=== PATIENT | female | born 1985 | race Caucasian/White ===

== ENCOUNTER 2016-11-13 11:33 | Emergency (ER) | payer MEDICAID ==
[2016-11-13 13:55] VITALS: BP 110/69
== END 2016-11-13 14:00 | disposition home or self-care (01) ==
LOC: ED 11:33
DX: S70.361A Insect bite (nonvenomous), right thigh, initial encounter (principal); S80.261A Insect bite (nonvenomous), right knee, initial encounter; S80.862A Insect bite (nonvenomous), left lower leg, initial encounter; L08.9 Local infection of the skin and subcutaneous tissue, unspecified; W57.XXXA Bitten or stung by nonvenomous insect and other nonvenomous arthropods, initial encounter; Y93.89 Activity, other specified; Y99.8 Other external cause status; Y92.89 Other specified places as the place of occurrence of the external cause
CPT/HCPCS: J7512

== ENCOUNTER 2018-03-14 10:44 | Emergency (ER) | payer SELFPAY ==
[~2018-03-14] VITALS: Ht 157.5 cm; Wt 72.1 kg
[2018-03-14 10:58] VITALS: Ht 157.5 cm; Wt 72.1 kg
[2018-03-14 11:31] VITALS: BP 148/103
== END 2018-03-14 11:31 | disposition home or self-care (01) ==
LOC: ED 10:44
DX: L03.114 Cellulitis of left upper limb (principal); E78.00 Pure hypercholesterolemia, unspecified; I10 Essential (primary) hypertension; E11.9 Type 2 diabetes mellitus without complications
CPT/HCPCS: 82962

== ENCOUNTER 2018-06-22 18:45 | Emergency (ER) | payer MEDICAID ==
[~2018-06-22] VITALS: Ht 154.9 cm; Wt 73.0 kg
[2018-06-22 19:02] VITALS: BP 146/96; Ht 154.9 cm; Wt 73.0 kg
== END 2018-06-22 20:27 | disposition home or self-care (01) ==
LOC: ED 18:45
DX: S60.221A Contusion of right hand, initial encounter (principal); I10 Essential (primary) hypertension; E11.9 Type 2 diabetes mellitus without complications; E78.00 Pure hypercholesterolemia, unspecified; F32.9 Major depressive disorder, single episode, unspecified; W51.XXXA Accidental striking against or bumped into by another person, initial encounter; Y93.89 Activity, other specified; Y92.89 Other specified places as the place of occurrence of the external cause; Y99.8 Other external cause status

== ENCOUNTER 2018-08-26 09:15 | Inpatient (IN) | payer MEDICAID ==
[~2018-08-26] VITALS: Ht 157.5 cm; Wt 72.6 kg
[2018-08-26 09:22] VITALS: Ht 157.5 cm; Wt 72.6 kg
--- NOTE | 2018-08-26 09:37 | NUR ---
PATIENT CAME TO ED CO HEMATEESIS THAT STARTED 2 DAYS AGO. PATIENT DESCRIBED THE VOMIT YELLOW WITH CHUNKS. VOMITING IS ACCOMPANIED BY NAUSEA AND DAIRRHEA. PATIENT STATES SHE DOES NOT HAVE AN APPETITE BUT FORCES HERSELF TO EAT. PATIENT STATES SHARP PAIN IN THE EPIGASTRIC AREA THAT RADIATES TO ALL 4 QUADRANTS OF ABDOMEN. PATIENT STATES SHE FEELS PAIN WHEN SHE TRIES TO EAT. BOWEL SOUNDS HYPOACTIVE ON AUSCULTATION THROUGHOUT ABDOMEN. BREATHING EVEN AND UNLABORED WITH NAD. PATIENT RECLINED ON GURNEY. WILL CONTINUE TO MONITOR.
[2018-08-26 10:29] LABS: CALCIUM 8.6 mg/dL (8.5-10.1); CARBON DIOXIDE 19.2 mmol/L (21-32); CHLORIDE SERUM 104 mmol/L (98-107); CREATININE SERUM 0.7 mg/dL (0.6-1.0); GFR1 > 60 mL/min; GLUCOSE SERUM 93 mg/dL (74-106); POTASSIUM SERUM 3.3 mmol/L (3.5-5.1); SODIUM SERUM 141 mmol/L (136-145)
[2018-08-26 10:33] LABS: BASOPHIL % 1.2 % (0-2); PLATELET COUNT 197 x10^3mcL (130-400); RED CELL DISTRIBUTION WIDTH 12.5 % (11.5-14.5)
[2018-08-26 10:34] LABS: ALBUMIN 4.1 g/dL (3.4-5.0); ALKALINE PHOSPHATASE 79 U/L (46-116); ALT/SGPT 187 U/L (14-59); AST/SGOT 126 U/L (15-37); BILIRUBIN TOTAL 0.5 mg/dL (0.20-1.00); LIPASE 159 IU/L (73-393); TOTAL PROTEIN, SERUM 7.4 g/dL (6.4-8.2)
[2018-08-26 10:36] LABS: microscopic required? NO
--- NOTE | 2018-08-26 11:05 | NUR ---
PATIENT RESTING AT BEDSIDE IN NAD
[2018-08-26 11:08] LABS: AMPHETAMINE QUAL UR NONE DETECTED (See below)
[2018-08-26 11:40] LABS: urine erythrocyte NEGATIVE (NEGATIVE)
--- NOTE | 2018-08-26 11:40 | NUR ---
PT RESTING AT BEDSIDE IN NAD. LIGHTS DIMMED TO PROMOTE PATIENT COMFORT. BREATHING E/U BILATERAL CHEST RISE. PATIENT STS PAIN IS TOLERABLE AND STS SATISFACTION
--- NOTE | 2018-08-26 14:43 | NUR ---
ASSUMED CARE OF PATIENT. FIANCE AT BEDSIDE. NO APPARENT S/SX OF DISTRES OR DISCOMFORT. WILL CONTINUE TO MONITOR.
[2018-08-26 14:47] VITALS: BP 139/95
[2018-08-26 14:57] LABS: CHOLESTEROL/HDL RATIO 4.5; PHOSPHOROUS 3.5 mg/dL (2.5-4.9)
--- NOTE | 2018-08-26 15:04 | NUR ---
COMPLAINING OF 7/10 ABDOMINAL PAIN. PRN NORCO PROVIDED.
--- NOTE | 2018-08-26 15:17 | NUR ---
RECEIVED PT FROM ER. PT ADMIT FOR CHOLECYSTITIS, PT IS A/O X4, VERBAL RESPONSIVE, ABLE TO TELL WHAT SHE NEEDS. LUNG SOUND CLEAR BIALTERAL, NO COUGH, NO SOB, PT IS ON TELE 31, NSR, DENY ANY CHEST PAIN OR DISCOMFORT, BOWEL SOUND PRESENT ALL 4 QUADRANTS, NO DISTENTION, NO TENDER. PT C/O ABD PAIN UPPER QUADRANTS 8/10, NAUSEA AT THIS TIME, PEDAL PULSE PRESENT BOTH FEET, NO EDEMA, IV AT RIGHT AC, NO LEAKING, NO INFITLRAITNO. ALL ADLS ASSIST, ALL NEED MET, CALL LIGHT IN REACH, WILL CONTINUE TO MONITOR.
--- NOTE | 2018-08-26 15:37 | NUR ---
PATIENT REPORTING DRINKING 6-10 BEERS A DAY. ATTEMPTING TO CONTACT .
--- NOTE | 2018-08-26 15:57 | NUR ---
PNEUMOVAX ADMINISTERED. EDUCATED ON VACCINE SIDE EFFECTS.
--- NOTE | 2018-08-26 16:19 | NUR ---
PATIENT NOTIFIED OF NEED FOR STOOL SAMPLE FOR OCCULT BLOOD.
[2018-08-26 16:49] VITALS: BP 139/95
[2018-08-26 16:56] VITALS: BP 102/49
--- NOTE | 2018-08-26 18:41 | NUR ---
PATIENT SEEN RESTING IN BED WITH EQUAL AND UNLABORED RESPIRATIONS. NO APPARENT S/SX OF DISTRESS OR DISCOMFORT NOTED. IV ON RAC PATENT AND INFUSING 100 ML/HR NS. WILL ENDORSE CARE TO ONCOMING RN.
--- NOTE | 2018-08-26 19:30 | NUR ---
PT IS A/O x4. ON TELE #31, NSR. DENIES ANY CHEST PAIN OR PRESSURE. PULSES ARE PRESENT. NO EDEMA NOTED. LUNGS CLEAR IN ALL FEILDS. ON RA, DENIES ANY SOB. EQAUL CHEST RISE AND FALL. BOWEL SOUNDS PRESENT X4, DENIES ANY ABD PAIN. PT C/O NAUSEA. WILL GIVE PRN MEDICATION PER EMAR. VOIDS FREELY. SKIN WARM AND INTACT. DENIES ANY PAIN AT THIS TIME. FAMILY AT BEDSIDE. BED IS AT LOWEST SETTING. CALL LIGHT WITHIN REACH. WILL CONTINUE TO MONITOR.
[2018-08-26 21:01] VITALS: BP 132/87
--- NOTE | 2018-08-27 01:30 | NUR ---
PT RESTING IN BED WITH BOTH EYES CLOSED. BREATHING EVEN AND UNLABORED. NO SIGN OF DISTRESS NOTED. BED IS AT LOWEST SETTING. CALL LIGHT WITHIN REACH. WILL CONTINUE TO MONITOR.
[2018-08-27 05:29] VITALS: BP 129/86
[2018-08-27 06:21] LABS: BASOPHIL % 1.2 % (0-2); PLATELET COUNT 164 x10^3mcL (130-400); RED CELL DISTRIBUTION WIDTH 12.6 % (11.5-14.5)
[2018-08-27 06:40] LABS: CALCIUM 8.2 mg/dL (8.5-10.1); CARBON DIOXIDE 19.2 mmol/L (21-32); CHLORIDE SERUM 110 mmol/L (98-107); CREATININE SERUM 0.6 mg/dL (0.6-1.0); GFR1 > 60 mL/min; GLUCOSE SERUM 80 mg/dL (74-106); POTASSIUM SERUM 3.6 mmol/L (3.5-5.1); SODIUM SERUM 144 mmol/L (136-145)
--- NOTE | 2018-08-27 06:40 | NUR ---
PT RESTING IN BED WITH BOTH EYES CLOSED. BREATHING EVEN AND UNLABORED. NO SIGN OF DISTRESS NOTED. IV INACT AND PATENT. NO ACUTE EVENT OCCURED AT NIGHT. BED IS AT LOWEST SETTING. CALL LIGHT WITHIN REACH. WILL ENDORSE TO AM NURSE.
--- NOTE | 2018-08-27 07:30 | NUR ---
RECEIVED PATIENT IN BED, AWAKE AND ALERT. PER PATIENT SHE DOES NOT HAVE ANY APPETITE, AND THAT WHEN SHE DOES EAT ANYTHING SHE HAS DIARRHEA. DENIES ANY N/V AT THIS TIME. TELE 31 NSR. IVF INFUSING WELL TO RT A/C. SITE PATENT. NO ACUTE DISTERSS NOTED. WILL CONTINUE TO MONITOR.
[2018-08-27 08:20] VITALS: BP 126/92
--- NOTE | 2018-08-27 10:15 | NUR ---
DR CR INTO SEE PATIENT. NEW ORDER RECEIVED TO CONSENT PATIENT FOR EGD. PATIENT SIGNED CONSENT, AND IS NPO ORDERED. WILL CONTINUE TO MONITOR.
--- NOTE | 2018-08-27 10:16 | NUR ---
Discount pharmacy card and list to low cost medical clinics given to patient by Lane.
[2018-08-27 12:01] VITALS: BP 133/88
--- NOTE | 2018-08-27 12:20 | NUR ---
PATIENT WENT DOWN TO GI LAB FOR EGD VIA [facility] AT THIS TIME.
--- NOTE | 2018-08-27 13:40 | NUR ---
PATIENT RETURNED FROM GI LAB. AWAKE ALERT AND ORIENTED. DENIES ANY PAIN OR DISCOMFORT. REMAINS NPO PER ORDERS FOR COLONOSCOPY TOMORROW. WILL CONTINUE TO MONITOR.
[2018-08-27 16:00] VITALS: BP 120/82
--- NOTE | 2018-08-27 17:36 | NUR ---
PATIENT SITTING UP IN BED. TEARFUL D/T FAMILY PROBLEMS PER PATIENT. BOWEL PREP STARTED ORDERED. BSC IN PLACE FOR PATIENT. HL RT A/C PATENT. PATIENT IS NPO ORDERED. CONSENT FOR COLONOSCOPY SIGNED. NO C/O PAIN OR DISCOMFORT. WILL CONTINUE TO MONITOR.
--- NOTE | 2018-08-27 18:50 | NUR ---
I HAVE REVIEWED THE DATA COLLECTION BY CARD PLAYER (NAME): ENTERED ON (DATE/TIME): I CONCUR WITH THE DATA AND ANY EXCEPTIONS OR COMMENTS ARE LISTED BELOW: PATIENT'S PLAN OF CARE WAS DISCUSSED AND REVIEWED WITH CARD PLAYER:SHERRI KIMBALL
--- NOTE | 2018-08-27 18:51 | NUR ---
PATIENT OOB TO THE BATHROOM. CALLED TO THE ROOM TO LOOK AT PATIENT'S BM. BM WAS NOTED TO APPEAR LIQUID YELLOW WITH DARK BROWN SOFT BM. PATIENT STATES SHE DOES FEEL A LITTLE BETTER AFTER ZOFRAN WAS GIVEN. PER PATIENT SHE THINKS SHE WILL BE ABLE TO FINISH THE REST OF THE BOWEL PREP. PATIENT IS SITTING UP WATCHING TV AT THIS TIME.
--- NOTE | 2018-08-27 19:05 | NUR ---
RECEIVED PT FROM PREVIOUS SHIFT NURSE. PT AOX4. DENIES MAYA/DIZZINESS. TELE #31, NSR, HR 73. DENIES CP/PRESSURE. DENIES SOB/DIFFICULTY BREATHING, ON RA. IV TO RAC, INTACT AND PATENT. BED IN LOWEST POSITION. CALL LIGHT WITHIN REACH. WILL CONTINUE TO MONITOR.
--- NOTE | 2018-08-27 19:49 | NUR ---
PT LAST BM CLEAR/ TRANSPARENT YELLOW WITH NO PARTICLES.
[2018-08-27 21:50] VITALS: BP 149/110
[2018-08-27 22:30] VITALS: BP 139/93
--- NOTE | 2018-08-28 00:22 | NUR ---
PT BM'S CONTINUE TO BE CLEAR YELLOW.
[2018-08-28 06:08] VITALS: BP 108/81
[2018-08-28 06:11] VITALS: BP 110/71
--- NOTE | 2018-08-28 06:14 | NUR ---
PT REQUESTING RAC IV TO BE REMOVED DUE TO PAIN WHEN MOVING. NO REDNESS/SWELLING NOTED. IV REMOVED, TIP INTACT. NEW IV PLACED TO L. HAND, FLUSHING WELL.
[2018-08-28 06:45] LABS: BASOPHIL % 0.8 % (0-2); PLATELET COUNT 170 x10^3mcL (130-400); RED CELL DISTRIBUTION WIDTH 12.3 % (11.5-14.5)
[2018-08-28 06:47] LABS: CALCIUM 9.5 mg/dL (8.5-10.1); CARBON DIOXIDE 22.5 mmol/L (21-32); CHLORIDE SERUM 107 mmol/L (98-107); CREATININE SERUM 0.5 mg/dL (0.6-1.0); GFR1 > 60 mL/min; GLUCOSE SERUM 72 mg/dL (74-106); POTASSIUM SERUM 3.7 mmol/L (3.5-5.1); SODIUM SERUM 144 mmol/L (136-145)
--- NOTE | 2018-08-28 07:44 | NUR ---
SEEN AAOX4. NO RESP DISTRESS NOTED ON ROOM AIR. DENIES ABDN PAIN AT THIS TIME. KEPT NPO FOR COLONOSCOPE. REPORTED GIVEN TO GI NURSE. S/L TO LT HAND FLUSHED PATENT. PLAN OF CARE DISCUSSED. CALL LIGHT PLACED WITHIN EASY REACH, SIDERAILS UP X2.
[2018-08-28 07:55] VITALS: BP 123/87
--- NOTE | 2018-08-28 08:29 | NUR ---
OFF FLOOR FOR COLONOSCOPE.
[2018-08-28 08:42] VITALS: BP 123/87
--- NOTE | 2018-08-28 10:16 | NUR ---
RECEIVED BACK FROM COLONOSCOPE, AAOX4. ON REGULAR DIET. DENIES PAIN OR NAUSEA AT THIS TIME. DOCTOR BRISEYDA AT BEDSIDE FOR AM ROUND. CURRENT CONDTION UPDATED AND PLAN OF CARE INFORMED.
[2018-08-28 10:17] VITALS: BP 115/72
[2018-08-28] MEDS ORDERED: FLA500 PO (12:32)
[2018-08-28] MEDS ORDERED: BIA500 PO (12:32)
[2018-08-28] MEDS ORDERED: PROTONIX40 MG/Pac1 PO (12:33)
--- NOTE | 2018-08-28 14:20 | NUR ---
DISCHARGE INSTRUCTION/PRESCRIPTION EXPLAINED AND GIVEN TO PATIENT WHO IS AWAKE, ALERT, ORIENTED X4. S/L TO LT HAND REMOVED WITH CATHETER INTACT, DRSG APPLIED. DENIES PAIN. TOLERATED TO REGULAR WELL. BROUGHT VIA WHEELCHAIR ACCOMPANIED BY PATIENT'S MOTHER. CONDITION STABLE UPON DISCHARGE.
== END 2018-08-28 14:15 | disposition home or self-care (01) ==
LOC: ED 09:15 → DU 13:18 → MU 13:18 → DU 15:00
PROVIDERS: Emergency Medicine; Internal Medicine Gastroenterology; ADMIT Internal Medicine
PROC: 0DB98ZX Excision of Duodenum, Via Natural or Artificial Opening Endoscopic, Diagnostic (ICD-10-PCS; principal; 2018-08-27 12:30)
PROC: 0DB68ZX Excision of Stomach, Via Natural or Artificial Opening Endoscopic, Diagnostic (ICD-10-PCS; 2018-08-27 12:30)
PROC: 0DJD8ZZ Inspection of Lower Intestinal Tract, Via Natural or Artificial Opening Endoscopic (ICD-10-PCS; 2018-08-28)
DX: K80.20 Calculus of gallbladder without cholecystitis without obstruction (principal); K29.71 Gastritis, unspecified, with bleeding; B96.81 Helicobacter pylori [H. pylori] as the cause of diseases classified elsewhere; E11.9 Type 2 diabetes mellitus without complications; E87.6 Hypokalemia; E78.5 Hyperlipidemia, unspecified; K29.80 Duodenitis without bleeding; K59.09 Other constipation; F10.10 Alcohol abuse, uncomplicated; R74.0 Nonspecific elevation of levels of transaminase and lactic acid dehydrogenase [LDH]; I10 Essential (primary) hypertension; F32.9 Major depressive disorder, single episode, unspecified; Z68.29 Body mass index [BMI] 29.0-29.9, adult; Z79.84 Long term (current) use of oral hypoglycemic drugs
CPT/HCPCS: 43235; 45378; 87046; 87046-59; 90732; G0378; G0480; J1200; J1610; J2250; J2310; J2405; J2543; J3010; J3490; J7030; Q0092

== ENCOUNTER 2018-12-16 19:27 | Emergency (ER) | payer MEDICAID ==
[~2018-12-16] VITALS: Ht 157.5 cm; Wt 64.6 kg
[~2018-12-16 19:27] MED LIST: BIA500 PO; FLA500 PO; PROTONIX40 MG/Pac1 PO
[2018-12-16 19:31] VITALS: BP 139/106; Ht 157.5 cm; Wt 64.6 kg
== END 2018-12-16 20:38 | disposition home or self-care (01) ==
LOC: ED 19:27
DX: M79.672 Pain in left foot (principal); R03.0 Elevated blood-pressure reading, without diagnosis of hypertension; I10 Essential (primary) hypertension; E11.9 Type 2 diabetes mellitus without complications; E78.00 Pure hypercholesterolemia, unspecified; F32.9 Major depressive disorder, single episode, unspecified; Z88.0 Allergy status to penicillin; Z91.040 Latex allergy status; W22.8XXA Striking against or struck by other objects, initial encounter; Y93.89 Activity, other specified; Y92.89 Other specified places as the place of occurrence of the external cause; Y99.8 Other external cause status

== ENCOUNTER 2019-01-08 15:33 | Inpatient (IN) | payer MEDICAID ==
[~2019-01-08] VITALS: Ht 154.9 cm; Wt 64.0 kg
[2019-01-08 15:37] VITALS: Ht 154.9 cm; Wt 64.0 kg
[2019-01-08 16:54] LABS: BASOPHIL % 0.6 % (0-2); PLATELET COUNT 232 x10^3mcL (130-400); RED CELL DISTRIBUTION WIDTH 13.7 % (11.5-14.5)
[2019-01-08 16:55] LABS: microscopic required? YES; urine erythrocyte TRACE (NEGATIVE)
[2019-01-08 17:02] LABS: CALCIUM 8.2 mg/dL (8.5-10.1); CARBON DIOXIDE 24.6 mmol/L (21-32); CHLORIDE SERUM 105 mmol/L (98-107); CREATININE SERUM 0.5 mg/dL (0.6-1.0); GFR1 > 60 mL/min; GLUCOSE SERUM 82 mg/dL (74-106); POTASSIUM SERUM 4.2 mmol/L (3.5-5.1); SODIUM SERUM 142 mmol/L (136-145)
[2019-01-08 17:15] LABS: ALBUMIN 4.7 g/dL (3.4-5.0); ALKALINE PHOSPHATASE 69 U/L (46-116); ALT/SGPT 93 U/L (14-59); AST/SGOT 63 U/L (15-37); BILIRUBIN TOTAL 4.04 mg/dL (0.20-1.00); FREE T4 1.02 ng/dL (0.76-1.46); TOTAL PROTEIN, SERUM 7.5 g/dL (6.4-8.2)
[2019-01-08 17:38] LABS: AMPHETAMINE QUAL UR NONE DETECTED (See below)
[2019-01-08 21:05] LABS: BILIRUBIN DIRECT 0.1 mg/dL (0.0-0.2); BILIRUBIN TOTAL 3.9 mg/dL (0.20-1.00); TOTAL PROTEIN, SERUM 6.8 g/dL (6.4-8.2)
[2019-01-09] MEDS ORDERED: ASPIR 8181 MG (14:14)
[2019-01-09] MEDS ORDERED: LISINOPRIL2.5 MG PO (14:14)
[2019-01-09 15:59] VITALS: BP 141/93
[2019-01-09 17:11] VITALS: BP 141/99
[2019-01-09 18:36] LABS: BASOPHIL % 1.1 % (0-2); PLATELET COUNT 213 x10^3mcL (130-400); RED CELL DISTRIBUTION WIDTH 13.8 % (11.5-14.5)
[2019-01-09 18:41] LABS: CALCIUM 8.5 mg/dL (8.5-10.1); CARBON DIOXIDE 26.9 mmol/L (21-32); CHLORIDE SERUM 105 mmol/L (98-107); CREATININE SERUM 0.8 mg/dL (0.6-1.0); GFR1 > 60 mL/min; GLUCOSE SERUM 112 mg/dL (74-106); MAGNESIUM 1.9 mg/dL (1.8-2.4); POTASSIUM SERUM 4.7 mmol/L (3.5-5.1); SODIUM SERUM 139 mmol/L (136-145)
[2019-01-09 20:45] VITALS: BP 125/89
[2019-01-10 05:14] VITALS: BP 108/81
[2019-01-10 07:16] LABS: BASOPHIL % 0.8 % (0-2); PLATELET COUNT 179 x10^3mcL (130-400); RED CELL DISTRIBUTION WIDTH 14.1 % (11.5-14.5)
[2019-01-10 07:20] LABS: CALCIUM 7.9 mg/dL (8.5-10.1); CARBON DIOXIDE 21.9 mmol/L (21-32); CHLORIDE SERUM 108 mmol/L (98-107); CREATININE SERUM 0.5 mg/dL (0.6-1.0); GFR1 > 60 mL/min; GLUCOSE SERUM 74 mg/dL (74-106); PHOSPHOROUS 3.4 mg/dL (2.5-4.9); POTASSIUM SERUM 3.5 mmol/L (3.5-5.1); SODIUM SERUM 141 mmol/L (136-145)
[2019-01-10 08:37] VITALS: BP 107/62
[2019-01-10 13:44] LABS: ALBUMIN 3.4 g/dL (3.4-5.0); BILIRUBIN DIRECT 0.11 mg/dL (0.0-0.2); BILIRUBIN TOTAL 0.4 mg/dL (0.20-1.00); TOTAL PROTEIN, SERUM 6.2 g/dL (6.4-8.2)
[2019-01-10 15:53] VITALS: BP 132/91
== END 2019-01-10 20:15 | disposition left against medical advice (07) | DRG 817 ==
LOC: ED 15:33 → MU 01-09 15:09
PROVIDERS: Emergency Medicine; ADMIT General Practice
DX: T39.1X2A Poisoning by 4-Aminophenol derivatives, intentional self-harm, initial encounter (principal); E83.51 Hypocalcemia; E11.9 Type 2 diabetes mellitus without complications; N39.0 Urinary tract infection, site not specified; T39.312A Poisoning by propionic acid derivatives, intentional self-harm, initial encounter; G44.40 Drug-induced headache, not elsewhere classified, not intractable; E80.6 Other disorders of bilirubin metabolism; I10 Essential (primary) hypertension; F12.129 Cannabis abuse with intoxication, unspecified; F10.129 Alcohol abuse with intoxication, unspecified; Y90.3 Blood alcohol level of 60-79 mg/100 ml; Z53.29 Procedure and treatment not carried out because of patient's decision for other reasons; Y92.009 Unspecified place in unspecified non-institutional (private) residence as the place of occurrence of the external cause
CPT/HCPCS: 84439; 99406; G0378; G0480; J0696; J7030; Q0092

== ENCOUNTER 2019-05-13 09:44 | Emergency (ER) | payer MEDICAID ==
[~2019-05-13] VITALS: Ht 154.9 cm; Wt 66.7 kg
[~2019-05-13 09:44] MED LIST changes: +ASPIR 8181 MG; +LISINOPRIL2.5 MG PO
[2019-05-13 09:59] VITALS: Ht 154.9 cm; Wt 66.7 kg
[2019-05-13 13:05] VITALS: BP 136/78
== END 2019-05-13 13:05 | disposition home or self-care (01) ==
LOC: ED 09:44
DX: S76.912A Strain of unspecified muscles, fascia and tendons at thigh level, left thigh, initial encounter (principal); I10 Essential (primary) hypertension; E11.9 Type 2 diabetes mellitus without complications; E78.00 Pure hypercholesterolemia, unspecified; Z98.890 Other specified postprocedural states; Z88.0 Allergy status to penicillin; Z91.040 Latex allergy status; X58.XXXA Exposure to other specified factors, initial encounter; Y93.89 Activity, other specified; Y92.89 Other specified places as the place of occurrence of the external cause; Y99.8 Other external cause status
CPT/HCPCS: J1885

== ENCOUNTER 2020-01-17 18:34 | Emergency (ER) | payer MEDICAID, SELFPAY ==
[~2020-01-17] VITALS: Ht 154.9 cm; Wt 61.2 kg
[2020-01-17 18:36] VITALS: Ht 154.9 cm; Wt 61.2 kg
[2020-01-17 20:35] LABS: BASOPHIL % 0.6 % (0-2); PLATELET COUNT 205 x10^3mcL (130-400)
[2020-01-17 20:48] LABS: CALCIUM 8.9 mg/dL (8.5-10.1); CARBON DIOXIDE 23.9 mmol/L (21-32); CHLORIDE SERUM 101 mmol/L (98-107); CREATININE SERUM 0.6 mg/dL (0.6-1.0); GFR1 > 60 mL/min; GLUCOSE SERUM 78 mg/dL (74-106); POTASSIUM SERUM 3.6 mmol/L (3.5-5.1); SODIUM SERUM 137 mmol/L (136-145)
[2020-01-17 20:53] LABS: ALBUMIN 3.9 g/dL (3.4-5.0); ALKALINE PHOSPHATASE 73 U/L (46-116); ALT/SGPT 63 U/L (14-59); AST/SGOT 48 U/L (15-37); BILIRUBIN TOTAL 0.49 mg/dL (0.20-1.00); LIPASE 92 IU/L (73-393); TOTAL PROTEIN, SERUM 7.6 g/dL (6.4-8.2)
[2020-01-17 22:35] VITALS: BP 124/78
== END 2020-01-17 22:35 | disposition home or self-care (01) ==
LOC: ED 18:34
PROVIDERS: Specialist
DX: K80.70 Calculus of gallbladder and bile duct without cholecystitis without obstruction (principal); N39.0 Urinary tract infection, site not specified; F10.10 Alcohol abuse, uncomplicated; F17.210 Nicotine dependence, cigarettes, uncomplicated; I10 Essential (primary) hypertension; E11.9 Type 2 diabetes mellitus without complications; E78.00 Pure hypercholesterolemia, unspecified; Z98.890 Other specified postprocedural states; Z88.0 Allergy status to penicillin; Z91.040 Latex allergy status
CPT/HCPCS: J1885; Q0092